=== PATIENT | male | born 1985 | race Caucasian/White ===

== ENCOUNTER 2021-02-06 23:56 | Day surgery (SDCO) | payer OTHER ==
[~2021-02-06] VITALS: Ht 167.6 cm; Wt 106.3 kg
[2021-02-07 01:58] LABS: BASOPHIL 0.2 % (0-2); EOSINOPHIL 0.4 % (0-5); HCT 44.3 % (42.0-52.0); HGB 14.7 g/dl (13.2-18.0); LYMPHOCYTE 2.2 % (15-48); MCHC 33.2 g/dL (32.0-36.0); MCV 93.5 fL (78.0-100.0); MONOCYTE 4.2 % (0-12); MPV 9.6 fL (6.0-9.5); NRBC 0; PLT 321 K/uL (150-400); RBC 4.74 M/uL (4.70-6.00); RDW 12.4 % (11.5-14.0); WBC 14.1 K/uL (4.0-10.5)
[2021-02-07 02:01] LABS: NEUTROPHIL 92.4 % (41-80)
[2021-02-07 02:13] LABS: ALBUMIN 3.7 g/dL (3.4-5.0); BILIRUBIN - TOTAL 0.4 mg/dL (0.2-1.0); BUN/CREAT RATIO (CALC) 14.3 RATIO; C-REACTIVE PROTEIN 1.6 mg/dL (<=0.90); CREATININE 0.98 mg/dL (0.67-1.17); GLOBULIN (CALCULATION) 3.8 g/dL; POTASSIUM 4.2 mmol/L (3.5-5.1); TOTAL PROTEIN 7.5 g/dL (6.4-8.2)
[2021-02-07 02:17] LABS: LACTIC ACID 2.4 mmol/L (0.4-1.9)
[2021-02-07 02:38] LABS: BILIRUBIN NEGATIVE (NEGATIVE); BLOOD NEGATIVE Ery/uL (NEGATIVE); CLARITY CLEAR (CLEAR); COLOR YELLOW (YELLOW); GLUCOSE (U) NORMAL (NORMAL); LEUKOCYTES NEGATIVE Leu/uL (NEGATIVE); NITRITE NEGATIVE (NEGATIVE); PROTEIN TRACE (LOW) mg/dL (NEGATIVE); SPECIFIC GRAVITY 1.015 (1.001-1.030)
[2021-02-07 02:41] LABS: AMPHETAMINES NEGATIVE (NEGATIVE); BARBITURATES NEGATIVE (NEGATIVE); ECSTASY (MDMA) NEGATIVE (NEGATIVE); MARIJUANA (THC) NEGATIVE (NEGATIVE); METHADONE NEGATIVE (NEGATIVE); OPIATES NEGATIVE (NEGATIVE); OXYCODONE NEGATIVE (NEGATIVE)
[2021-02-07 07:17] LABS: LACTIC ACID 2.4 mmol/L (0.4-1.9)
[2021-02-07 09:47] LABS: BASOPHIL 0.2 % (0-2); EOSINOPHIL 0.2 % (0-5); HGB 13.1 g/dl (13.2-18.0); LYMPHOCYTE 4.5 % (15-48); MCH 30.4 pg (25.0-31.0); MCV 95.1 fL (78.0-100.0); MONOCYTE 4.7 % (0-12); MPV 9.7 fL (6.0-9.5); NEUTROPHIL 89.8 % (41-80); NRBC 0; PLT 305 K/uL (150-400); RBC 4.31 M/uL (4.70-6.00); RDW 12.7 % (11.5-14.0); WBC 9.1 K/uL (4.0-10.5)
[2021-02-07] MEDS ORDERED: SEROQUEL 25MG T25 MG PO ×2 (17:12)
[2021-02-07] MEDS ORDERED: SUDAFED 24-HOU240 MG PO (17:16)
[2021-02-07] MEDS ORDERED: ZESTRIL2.5 MG PO (17:17)
[2021-02-07] MEDS ORDERED: ZYRTEC10 MG PO (17:17)
[2021-02-08 09:59] LABS: BASOPHIL 0.3 % (0-2); EOSINOPHIL 0.8 % (0-5); HCT 43.3 % (42.0-52.0); HGB 14.1 g/dl (13.2-18.0); LYMPHOCYTE 9.4 % (15-48); MCH 30.8 pg (25.0-31.0); MCHC 32.6 g/dL (32.0-36.0); MCV 94.5 fL (78.0-100.0); MPV 9.5 fL (6.0-9.5); NEUTROPHIL 79.1 % (41-80); NRBC 0; PLT 268 K/uL (150-400); RBC 4.58 M/uL (4.70-6.00); RDW 12.8 % (11.5-14.0); WBC 10.4 K/uL (4.0-10.5)
[2021-02-08 10:44] LABS: BUN/CREAT RATIO (CALC) 7.6 RATIO; C-REACTIVE PROTEIN 16.8 mg/dL (<=0.90); CREATININE 0.92 mg/dL (0.67-1.17); MAGNESIUM 2.1 mg/dL (1.8-2.4); POTASSIUM 3.6 mmol/L (3.5-5.1)
== END 2021-02-08 14:38 | disposition home or self-care (01) ==
LOC: FER 23:56 → FMS 02-07 06:28
PROVIDERS: Internal Medicine; ADMIT Internal Medicine
DX: A41.9 Sepsis, unspecified organism (principal); K52.9 Noninfective gastroenteritis and colitis, unspecified; I10 Essential (primary) hypertension; F41.9 Anxiety disorder, unspecified; F32.9 Major depressive disorder, single episode, unspecified; Z79.899 Other long term (current) drug therapy; Z20.822 Contact with and (suspected) exposure to COVID-19
CPT/HCPCS: 36415; 80048; 80053; 80305; 81003; 83605; 83690; 83735; 85025; 86140; 87040; 87045; 87046; 87205; 87449; 93005; 94010; C9113; G0378; J2405; J7030; J7120; U0002

== ENCOUNTER 2021-03-13 14:37 | Emergency (ER) | payer SELFPAY ==
[~2021-03-13 14:37] MED LIST: SEROQUEL 25MG T25 MG PO; SUDAFED 24-HOU240 MG PO; ZESTRIL2.5 MG PO; ZYRTEC10 MG PO
[2021-03-13 16:26] LABS: BASOPHIL 0.6 % (0-2); EOSINOPHIL 0.4 % (0-5); HCT 47.3 % (42.0-52.0); HGB 15.6 g/dl (13.2-18.0); MCH 30.6 pg (25.0-31.0); MCV 92.7 fL (78.0-100.0); MONOCYTE 4.5 % (0-12); MPV 9.7 fL (6.0-9.5); NEUTROPHIL 83.6 % (41-80); NRBC 0; PLT 372 K/uL (150-400); RDW 12.8 % (11.5-14.0); WBC 10.5 K/uL (4.0-10.5)
[2021-03-13 16:50] LABS: ALBUMIN 4.2 g/dL (3.4-5.0); ALKALINE PHOSHATASE 61 U/L (46-116); ALT 74 U/L (16-63); AST 33 U/L (15-37); BILIRUBIN - TOTAL 0.2 mg/dL (0.2-1.0); BUN 12 mg/dL (7-18); BUN/CREAT RATIO (CALC) 11.7 RATIO; CHLORIDE 103 mmol/L (98-107); CO2 (BICARBONATE) 27 mmol/L (21-32); CREATININE 1.03 mg/dL (0.67-1.17); GLOBULIN (CALCULATION) 4.3 g/dL; GLUCOSE 118 mg/dL (74-106); POTASSIUM 4.8 mmol/L (3.5-5.1); TOTAL PROTEIN 8.5 g/dL (6.4-8.2)
[2021-03-13 16:51] LABS: ACETAMINOPHEN (TYLENOL) < 2.0 ug/mL (10.0-30.0)
== END 2021-03-13 20:25 ==
LOC: FER 14:37
PROVIDERS: Internal Medicine
DX: R45.851 Suicidal ideations (principal); Z20.822 Contact with and (suspected) exposure to COVID-19; Z88.8 Allergy status to other drugs, medicaments and biological substances; Z88.1 Allergy status to other antibiotic agents
CPT/HCPCS: 36415; 80053; 85025; 99285; G0480; U0002